=== PATIENT | female | born 1990 | race Caucasian/White ===

== ENCOUNTER 2017-09-17 09:45 | Emergency (ER) | payer BC ==
[~2017-09-17 09:45] MED LIST: CIPR-326 PO; DIG125 PO; LEVO1TAB31 PO; PHENA100 PO; WAR1 PO; WARF5VIA3 PO; WARF7.5T26 PO
--- NOTE | 2017-09-17 09:49 | ER Report ---
History and Physical Time Seen By MD: 09:48 HPI/ROS CHIEF COMPLAINT: Chest discomfort HISTORY OF PRESENT ILLNESS: Patient is a 27-year-old female with history of mitral valve regurgitation status post mitral valve replacement 2. Patient is on Coumadin as this is a mechanical valve. Patient presents today with complaint of chest pain although currently symptom-free. She states over the past few week she's been noticing chest pressure that occurs at rest and usually at nighttime. She's also had episodes of right arm numbness. She also reports feeling generally tired. [facility]. When she explained the symptoms she was referred to the emergency department for evaluation. She currently states that she is symptom- free. She is also concern is that she is about to go on a hike [place] 14,000 feet this coming weekend. So she would like a medical screening evaluation performed. REVIEW OF SYSTEMS: Constitutional: No fever, no chills. Eyes: No discharge. ENT: No sore throat. Cardiovascular: Chest discomfort, no palpitations Respiratory: No cough, no shortness of breath. Gastrointestinal: No abdominal pain, no vomiting. Genitourinary: No hematuria. Musculoskeletal: No back pain. Skin: No rashes. Neurological: No headache. Right arm numbness Allergies: Coded Allergies: nickel (Verified Allergy, Mild, 09/17/17) Home Meds Reported Medications Warfarin Sodium (WARFARIN SODIUM) 4 Mg Tablet, 8 MG PO QDAY 09/17/17 Discontinued Reported Medications Warfarin Sodium (COUMADIN) 7.5 Mg Tablet, 7 MG PO 3 days weekly 11/29/12 Levonorgestrel-Eth Estra (Aviane) 1 Tab Tablet, 1 TAB PO DAILY, #1 0 Refills titrate dose per instructions 05/27/12 Warfarin Sod (Coumadin) 1 Mg Tab, 6 MG PO 4 days weekly, 0 Refills 11/17/09 Digoxin (Lanoxin) 0.125 Mg Tab, 0.375 MG PO QDAY, 0 Refills 11/17/09 Past Medical/Surgical History Patient has a past medical history of mitral valve replacement, endocarditis, meningitis, arrhythmias, and pyelonephritis. Patient has a surgical history of myringotomy, mitral valve replacement x2,. Patient has a family history of diabetes, coronary artery disease. Hx Smoking: No Hx Alcohol Use: Yes (occasional) Constitutional Vital Sign - Last 24 Hours 09/17/17 09/17/17 09/17/17 09/17/17 09:45 09:50 10:00 10:01 Temp 98.8 Pulse 65 64 Resp 16 13 B/P (MAP) 142/94 142/94 (110) 130/86 (101) Pulse Ox 93 95 O2 Delivery Room Air 09/17/17 09/17/17 09/17/17 09/17/17 10:06 10:21 10:31 10:36 Pulse 60 58 Resp 22 17 27 B/P (MAP) 118/70 (86) Pulse Ox 97 09/17/17 09/17/17 09/17/17 09/17/17 11:00 11:20 11:30 12:00 B/P (MAP) 113/72 (86) 121/66 (84) 98/66 (77) Pulse Ox 81 09/17/17 14:09 Pulse 65 Resp 16 B/P (MAP) 124/62 (82) Pulse Ox 97 O2 Delivery Room Air Physical Exam General/Constitutional: Patient is awake, alert, nontoxic and in no acute respiratory distress. Head: Normocephalic and atraumatic. Eyes: Conjunctival clear, Pupils are equal and reactive to light. Extraocular muscles are intact and symmetrical. Sclera are clear and anicteric. Ears:External canals are clear. Tympanic membranes are clear with normal landmarks and light reflex. Nares: No rhinorrhea or bleeding. Turbinates are pink and moist. Oropharyngeal: Mucous membranes are moist. There is no pharyngeal erythema or exudate. There are no palatal petechiae. Uvula is midline and symmetrical. Neck: Supple, no adenopathy. Cardiovascular: Heart is regular rate and rhythm without audible murmurs, rubs or gallops. Pulmonary: Lungs are clear to auscultation bilaterally. There are no wheezes, rales, or rhonchi. Chest rise is symmetrical Abdomen: Soft, nontender, no guarding or peritoneal signs. Extremities: No gross deformities, No peripheral cyanosis. Able to move all 4 extremities. Neuro: Alert and oriented X3, Cranial nerves 2 thru 12 are intact and symmetrical. Patient has normal gait. Skin: No rashes, skin is warm dry and well perfused. Medical Decision Making Data Points Result Diagram: 09/17/17 1000 8/9/18 1000 Laboratory Hematology Test 09/17/17 10:00 09/17/17 13:19 Red Blood Count 5.62 M/uL (4.17-5.56) Mean Corpuscular Volume 83.9 fL (80.0-96.0) Mean Corpuscular Hemoglobin 29.9 pg (26.0-33.0) Mean Corpuscular Hemoglobin Concent 35.6 g/dL (32.0-36.0) Red Cell Distribution Width 13.5 % (11.5-14.5) Mean Platelet Volume 9.9 fL (7.2-11.1) Neutrophils (%) (Auto) 61.1 % (39.4-72.5) Lymphocytes (%) (Auto) 31.0 % (17.6-49.6) Monocytes (%) (Auto) 7.0 % (4.1-12.4) Eosinophils (%) (Auto) 0.4 % (0.4-6.7) Basophils (%) (Auto) 0.5 % (0.3-1.4) Nucleated RBC Relative Count (auto) 0.0 /100WBC Neutrophils # (Auto) 3.5 K/uL (2.0-7.4) Lymphocytes # (Auto) 1.8 K/uL (1.3-3.6) Monocytes # (Auto) 0.4 K/uL (0.3-1.0) Eosinophils # (Auto) 0.0 K/uL (0.0-0.5) Basophils # (Auto) 0.0 K/uL (0.0-0.1) Nucleated RBC Absolute Count (auto) 0.00 K/uL Prothrombin Time 29.2 seconds (12.0-14.4) Prothromb Time International Ratio 2.70 Activated Partial Thromboplast Time 44 seconds (23-35) Sodium Level 140 mmol/L (137-145) Potassium Level 3.9 mmol/L (3.5-5.0) Chloride Level 107 mmol/L (98-107) Carbon Dioxide Level 22 mmol/L (22-31) Blood Urea Nitrogen 10 mg/dl (7-18) Creatinine 0.50 mg/dl (0.52-1.04) Glomerular Filtration Rate Calc > 60.0 Random Glucose 116 mg/dl (75-110) Calcium Level 9.1 mg/dl (8.4-10.2) Total Bilirubin 0.7 mg/dl (0.2-1.3) Aspartate Amino Transf (AST/SGOT) 28 U/L (0-35) Alanine Aminotransferase (ALT/SGPT) 31 U/L (0-56) Alkaline Phosphatase 51 U/L (0-126) B-Type Natriuretic Peptide 34 pg/ml (0-100) Total Protein 7.4 g/dl (6.3-8.2) Albumin 4.5 g/dl (3.5-5.0) Human Chorionic Gonadotropin, Qual Negative (NEGATIVE) Troponin I 0.047 ng/ml Chemistry Test 09/17/17 10:00 09/17/17 13:19 White Blood Count 5.8 k/uL (4.5-11.0) Red Blood Count 5.62 M/uL (4.17-5.56) Hemoglobin 16.8 g/dL (12.0-16.0) Hematocrit 47.2 % (34.0-47.0) Mean Corpuscular Volume 83.9 fL (80.0-96.0) Mean Corpuscular Hemoglobin 29.9 pg (26.0-33.0) Mean Corpuscular Hemoglobin Concent 35.6 g/dL (32.0-36.0) Red Cell Distribution Width 13.5 % (11.5-14.5) Platelet Count 125 K/uL (150-450) Mean Platelet Volume 9.9 fL (7.2-11.1) Neutrophils (%) (Auto) 61.1 % (39.4-72.5) Lymphocytes (%) (Auto) 31.0 % (17.6-49.6) Monocytes (%) (Auto) 7.0 % (4.1-12.4) Eosinophils (%) (Auto) 0.4 % (0.4-6.7) Basophils (%) (Auto) 0.5 % (0.3-1.4) Nucleated RBC Relative Count (auto) 0.0 /100WBC Neutrophils # (Auto) 3.5 K/uL (2.0-7.4) Lymphocytes # (Auto) 1.8 K/uL (1.3-3.6) Monocytes # (Auto) 0.4 K/uL (0.3-1.0) Eosinophils # (Auto) 0.0 K/uL (0.0-0.5) Basophils # (Auto) 0.0 K/uL (0.0-0.1) Nucleated RBC Absolute Count (auto) 0.00 K/uL Prothrombin Time 29.2 seconds (12.0-14.4) Prothromb Time International Ratio 2.70 Activated Partial Thromboplast Time 44 seconds (23-35) Glomerular Filtration Rate Calc > 60.0 Calcium Level 9.1 mg/dl (8.4-10.2) Total Bilirubin 0.7 mg/dl (0.2-1.3) Aspartate Amino Transf (AST/SGOT) 28 U/L (0-35) Alanine Aminotransferase (ALT/SGPT) 31 U/L (0-56) Alkaline Phosphatase 51 U/L (0-126) B-Type Natriuretic Peptide 34 pg/ml (0-100) Total Protein 7.4 g/dl (6.3-8.2) Albumin 4.5 g/dl (3.5-5.0) Human Chorionic Gonadotropin, Qual Negative (NEGATIVE) Troponin I 0.047 ng/ml Coagulation Test 09/17/17 10:00 Prothrombin Time 29.2 seconds Prothromb Time International Ratio 2.70 Activated Partial Thromboplast Time 44 seconds EKG/Imaging EKG Interpretation EKG shows sinus rhythm with first-degree AV block. Monitor Interpretation: Normal Sinus Rhythm ED Course/Re-evaluation Clinical Indication for ER IV: Hydration, IV Access ED Course 80 time stamped plan at this time will be cardiac workup with a single troponin will also obtain cardiac echo stat and also CT of the head. Decision to Disposition Date: Sep 17, 2017 Decision to Disposition Time: 14:26 Depart Departure Latest Vital Signs Vital Signs Date Time Temp Pulse Resp B/P (MAP) Pulse Ox O2 Delivery O2 Flow Rate FiO2 09/17/17 14:09 65 16 124/62 (82) 97 Room Air 09/17/17 09:45 98.8 Impression: Primary Impression: Atypical chest pain Condition: Improved Disposition: HOME OR SELF-CARE Referrals: MATEO ATKINSON MD (PCP) Patient Instructions: Noncardiac Chest Pain (ED) OZ NICOLE MD Sep 17, 2017 09:49
[2017-09-17] MEDS ORDERED: WARF4TAB15 PO (09:53)
--- NOTE | 2017-09-17 10:11 | EKG ---
FACILITY: [facility] PATIENT NAME: KIM SOARES : [id number] MR: [id number] V: [id number] EXAM DATE: ORDERING PHYSICIAN: OZ NICOLE TECHNOLOGIST: ROSENDA Kimble Reason : Blood Pressure : / mmHG Vent. Rate : 053 BPM Atrial Rate : 053 BPM P-R Int : 272 ms QRS Dur : 108 ms QT Int : 420 ms P-R-T Axes : 015 063 055 degrees QTc Int : 394 ms Sinus bradycardia with marked sinus arrhythmia with 1st degree AV block Borderline ECG No previous ECGs available Confirmed by JOELLE ISRAEL ([id number]) on 09/17/2017 3:44:25 PM Referred By: BONNIE Confirmed By:JOELLE ISRAEL
[2017-09-17 10:17] LABS: PLATELET COUNT, AUTOMATED 125 K/uL (150-450)
[2017-09-17 10:21] LABS: INR 2.7
--- NOTE | 2017-09-17 11:14 | RADIOLOGY IMAGING REPORT ---
[facility] PATIENT NAME: Arlene Grande : 1990 MR: [id number] V: [id number] EXAM DATE: ORDERING PHYSICIAN: OZ NICOLE TECHNOLOGIST: Location: [facility] Patient: Arlene Grande : 1990 Visit/Account:[id number] Date of Sevice: 09/17/2017 CHEST PA AND LAT Additional pertinent History: Chest pain and numbness COMPARISON STUDIES: None FINDINGS: Support lines and catheters: None Lungs and Pleura: Lung jonas well expanded with no infiltrates or consolidations. No parenchymal ma ss lesions are seen. There are no effusions Heart and vasculature: Heart is mildly enlarged.. No vascular congestion Post heart valve Janie and Mediastinum: Negative. Bones and Chest wall: Sternotomy wires Upper Abdomen: Negative. IMPRESSION: 1. Negative chest for acute cardiopulmonary disease. Report Dictated By: Pj Khan MD at 09/17/2017 11:07 AM Report E-Signed By: Pj Khan MD at 09/17/2017 11:10 AM [id number]
--- NOTE | 2017-09-17 11:24 | RADIOLOGY IMAGING REPORT ---
FACILITY: [facility] PATIENT NAME: Arlene Grande : 1990 MR: [id number] V: [id number] EXAM DATE: ORDERING PHYSICIAN: OZ NICOLE TECHNOLOGIST: Location: [facility] [place] Patient: Arlene Grande : 1990 Visit/Account:[id number] Date of Sevice: 09/17/2017 EXAMINATION: CT head without IV contrast HISTORY: Right arm numbness. COMPARISON: None. TECHNIQUE: Contiguous axial images were obtained from the skull base to the vertex without intraven ous contrast. Sagittal and coronal reformatted images are also submitted. One of the following dose optimization techniques was utilized in the performance of this exam: Autom ated exposure control; adjustment of the mA and/or kV according to the patient's size; or use of an i terative reconstruction technique. Specific details can be referenced in the facility's radiology C T exam operational policy. FINDINGS: Brain volume: Normal. Ventricles: Normal. Acute ischemic changes: There is no loss of pettit-white differentiation to suggest acute ischemia. Hemorrhage: No acute hemorrhage or hemosiderin staining. Masses/edema: None. Pettit-white: Negative. White matter: Normal. Vessels: Negative. Extra-axial: Negative. Calvarium/scalp: Negative. Skull base/visualized face: Negative. Visualized sinuses/orbits: Negative. IMPRESSION: No intracranial mass lesion or hemorrhage. No CT evidence of acute infarct. Report Dictated By: Rosy Cain MD at 09/17/2017 11:17 AM Report E-Signed By: Rosy Cain MD at 09/17/2017 11:19 AM WSN:[id number]
[2017-09-17 14:09] VITALS: BP 124/62
== END 2017-09-17 14:12 | disposition home or self-care (01) ==
LOC: ER 09:49
DX: R07.89 Other chest pain (principal); Z79.01 Long term (current) use of anticoagulants; Z95.2 Presence of prosthetic heart valve; Z79.899 Other long term (current) drug therapy
CPT/HCPCS: 36415; 70450; 71046; 82040; 82247; 82310; 82374; 82435; 82565; 82947; 83880; 84075; 84132; 84155; 84295; 84450; 84460; 84484; 84520; 84703; 85025; 85610; 85730; 93005; 93306; 99284